=== PATIENT | female | born 1975 | race Two or more races ===

== ENCOUNTER 2020-08-27 09:53 | Emergency (ER) | payer MEDICAID, OTHER ==
[~2020-08-27] VITALS: Ht 160 cm; Wt 77.1 kg
[2020-08-27 10:08] VITALS: BP 139/82
[2020-08-27] MEDS ORDERED: IBUPROFEN 800 MG TAB PO ONE (10:45)
== END 2020-08-27 11:05 | disposition home or self-care (01) ==
LOC: ER 09:53
DX: S16.1XXA Strain of muscle, fascia and tendon at neck level, initial encounter (principal); S39.012A Strain of muscle, fascia and tendon of lower back, initial encounter; V49.49XA Driver injured in collision with other motor vehicles in traffic accident, initial encounter; Y93.89 Activity, other specified; Y92.488 Other paved roadways as the place of occurrence of the external cause; Y99.8 Other external cause status
CPT/HCPCS: 72040; 72100